=== PATIENT | female | born 1955 | race African-American/Black ===

== ENCOUNTER → 2017-04-26 | Outpatient (CLI) | payer BC ==
[~2017-04-26] MED LIST: CIPRO 500MG TA500 MG PO; FLEXERIL10 MG PO; LORTAB 5/500 501 TAB PO; MUCINEX DM 30 M1 TER PO; NO HOME MEDICATIONS; PEPCID 20MG TAB20 MG PO; PERCOCET 5/321 UDTAB PO; PHENERGAN 25 TA25 MG PO; PHENERGAN W/CO120 ML PO; PHENERGAN25 MG RC; TAMIFLU 75MG75 MG PO; TYLENOL 500MG500 MG PO; VICODIN 5/5001 UDTAB PO; ZITHROMAX TRI-500 MG PO
== END ==
LOC: MC.RAD 10:53
DX: Z12.31 Encounter for screening mammogram for malignant neoplasm of breast (principal)

== ENCOUNTER → 2019-11-21 | Outpatient (CLI) | payer BC | LOC: MC.RAD 07:26 | DX: Z12.31 Encounter for screening mammogram for malignant neoplasm of breast (principal); Z98.82 Breast implant status ==

== ENCOUNTER → 2021-07-06 | Outpatient (CLI) | payer BC | LOC: MC.RAD 06:56 | DX: Z12.31 Encounter for screening mammogram for malignant neoplasm of breast (principal) ==

== ENCOUNTER → 2022-10-27 | Outpatient (CLI) | payer BC | LOC: MC.RAD 06:51 | DX: Z12.31 Encounter for screening mammogram for malignant neoplasm of breast (principal) ==

== ENCOUNTER 2023-06-29 15:38 | Outpatient (RCR) | payer OTHER | END 2023-07-12 | LOC: WSOH | DX: S00.83XD Contusion of other part of head, subsequent encounter (principal); S06.0X0D Concussion without loss of consciousness, subsequent encounter; Y99.0 Civilian activity done for income or pay ==